=== PATIENT | male | born 1985 | race Two or more races ===

== ENCOUNTER 2020-07-09 20:20 | Emergency (ER) | payer SELFPAY ==
[~2020-07-09] VITALS: Ht 160 cm; Wt 63.6 kg
--- NOTE | 2020-07-09 20:27 | PHYS DOC ---
Past Medical History Past Medical History: No Pertinent History Past Surgical History: Appendectomy Smoking Status: Light Tobacco Smoker Alcohol Use: Rarely Drug Use: None General Adult EDM: Chief Complaint: MULTIPLE COMPLAINTS HPI: HPI: Patient is a 34-year-old male presenting for shortness of breath. Patient is predominantly French-speaking and so, limited history was obtained from myself and otherwise obtained using poultry pinner. Patient reports he recently relocated from [facility] within past week to moved to [facility] for work where he is living with his x2 brothers. Reports 3 days of shortness of breath, subjective fever and chills, nonproductive cough, abdominal discomfort with looser stools than usual. Nothing known makes better or worse. He denies any medical conditions, does not take any medications on a daily basis. No chest pain, hemoptysis, history of cardiac disease nor blood clots, no congenital abnormalities or significant family medical history Review of Systems: Review of Systems: Fourteen body systems of review of systems have been reviewed. See HPI for pertinent positives and negative responses, other meyer all other systems are negative, non-pertinent or non-contributory Heart Score: C/O Chest Pain: No HEART Score for Chest Pain: HEART Score for Chest Pain Response (Comments) Value History Slighlty/Non-Suspicious 0 ECG Normal 0 Age < 45 0 Risk Factors No Risk Factors 0 Troponin < Normal Limit 0 Total 0 Risk Factors: Risk Factors: DM, Current or recent (<one month) smoker, HTN, HLP, family history of CAD, obesity. Risk Scores: Score 0 - 3: 2.5% MACE over next 6 weeks - Discharge Home Score 4 - 6: 20.3% MACE over next 6 weeks - Admit for Clinical Observation Score 7 - 10: 72.7% MACE over next 6 weeks - Early Invasive Strategies Physical Exam: PE: Constitutional: Well developed, well nourished, no acute distress, non-toxic appearance. HENT: Normocephalic, atraumatic, bilateral external ears normal, oropharynx dry, no oral exudates, nose normal. Eyes: PERRLA, EOMI, conjunctiva normal, no discharge. Neck: Normal range of motion, no tenderness, supple, no stridor. Cardiovascular: Heart rate regular, sinus rhythm, no murmurs rubs or gallops Lungs & Thorax: Crackles present bilaterally without respiratory distress, accessory muscle use Abdomen: Bowel sounds normal, soft, no tenderness, no masses, no pulsatile masses. Nonsurgical abdomen, no peritoneal signs Skin: Warm, dry, no erythema, no rash. Back: No tenderness, no CVA tenderness. Extremities: No tenderness, no cyanosis, no clubbing, ROM intact, no edema. Neurologic: Alert and oriented X 3, grossly normal motor & sensory function, no focal deficits noted. Psychologic: Affect normal, judgement normal, mood normal. Current Patient Data: Labs: Laboratory Tests Test 07/09/20 20:55 White Blood Count 6.4 x10^3/uL Red Blood Count 4.62 x10^6/uL Hemoglobin 14.0 g/dL Hematocrit 40.0 % Mean Corpuscular Volume 87 fL Mean Corpuscular Hemoglobin 30 pg Mean Corpuscular Hemoglobin Concent 35 g/dL Red Cell Distribution Width 12.0 % Platelet Count 194 x10^3/uL Neutrophils (%) (Auto) 82 % Lymphocytes (%) (Auto) 11 % Monocytes (%) (Auto) 7 % Eosinophils (%) (Auto) 0 % Basophils (%) (Auto) 0 % Neutrophils # (Auto) 5.2 x10^3/uL Lymphocytes # (Auto) 0.7 x10^3/uL Monocytes # (Auto) 0.4 x10^3/uL Eosinophils # (Auto) 0.0 x10^3/uL Basophils # (Auto) 0.0 x10^3/uL Sodium Level 136 mmol/L Potassium Level 3.5 mmol/L Chloride Level 97 mmol/L Carbon Dioxide Level 25 mmol/L Anion Gap 14 Blood Urea Nitrogen 15 mg/dL Creatinine 1.0 mg/dL Estimated GFR (Cockcroft-Gault) 84.5 BUN/Creatinine Ratio 15 Glucose Level 102 mg/dL Lactic Acid Level 1.0 mmol/L Calcium Level 8.8 mg/dL Total Bilirubin 0.4 mg/dL Aspartate Amino Transf (AST/SGOT) 65 U/L Alanine Aminotransferase (ALT/SGPT) 50 U/L Alkaline Phosphatase 112 U/L Creatine Kinase 726 U/L Troponin I Quantitative < 0.017 ng/mL Total Protein 8.0 g/dL Albumin 3.8 g/dL Albumin/Globulin Ratio 0.9 Influenza Type A Antigen Negative Influenza Type B Antigen Negative Current Medications Medications (Trade) Dose Ordered Sig/Jani Route PRN Reason Start Time Stop Time Status Last Admin Dose Admin Sodium Chloride 1,000 ml @ 1,000 mls/hr Q1H IV 07/09/20 21:00 07/09/20 21:59 DC 07/09/20 21:17 Acetaminophen (Tylenol) 1,000 mg 1X ONCE PO 07/09/20 21:00 07/09/20 21:01 DC 07/09/20 21:16 Sodium Chloride 1,000 ml @ 30 mls/hr 1X ONCE IV 07/09/20 21:00 07/09/20 22:36 DC Doxycycline Hyclate (Vibra-Tab) 100 mg 1X ONCE PO 07/09/20 21:15 07/09/20 21:16 DC 07/09/20 21:17 Vital Signs: Vital Signs Date Time Temp Pulse Resp B/P (MAP) Pulse Ox O2 Delivery O2 Flow Rate FiO2 07/09/20 22:30 100.3 97 24 117/71 (86) 96 Room Air 100.3 07/09/20 20:40 102.6 107 20 122/75 (91) Room Air 95.0 102.6 EKG: EKG: EKG ordered and interpreted by myself 2847 hours as sinus rhythm at 107 bpm, unremarkable intervals, left axis deviation, no acute ischemic findings, no STEMI Radiology/Procedures: Radiology/Procedures: PROCEDURE: PORTABLE CHEST 1V Single view chest dated 07/09/2020. No comparison available. Clinical indication: Shortness breath. FINDINGS: Single upright portable exam performed. Heart and mediastinal contours are stable. There is patchy airspace disease at the peripheral aspect of the mid and lower lung zones bilaterally. No pleural effusion. No pneumothorax. IMPRESSION: Patchy bilateral airspace disease consistent with pneumonia. Covid 19 pneumonitis not excluded. Electronically signed by: Rafa Singleton MD (07/09/2020 8:54 PM) [facility] Course & Med Decision Making: Course & Med Decision Making Febrile and tachycardic patient presenting with history concerning for Covid- like illness in patient with recent moved from [facility] to [place]. Physical exam and ER work-up consistent with pneumonia and nonspecific [id number] symptoms Patient tolerated IV fluid rehydration while in ER, p.o. Tylenol improved patient's fever. Patient symptoms "much improved" and tolerating p.o. intake after ER intervention. P.o. doxycycline chosen for expanded atypical coverage given [place] travel and unknown zoonotic/exotic exposures I discussed need for antibiotic use and need to quarantine until COVID-19 results come back. Patient reports living at home with 6 other family members, he was educated extensively on quarantine measures etc. Strict return precautions were discussed with good understanding by patient, all questions and concerns addressed prior to your departure in improved condition Critical Care Time This patient required critical care. Due to the fact that the patient required a significant amount of one on one physician - patient contact time, ordering and review of studies, arranging urgent treatment with development of a management plan, evaluation of patients response to treatment with frequent reassessments, and discussions with other providers this patient required 32 minutes of critical care time. Critical care time was indicated due to the inherent instability and/or potential for instability in this patient. The critical care time that is allocated to this patient is above and beyond any time spent on any other billable procedures performed on this patient. Zachary Disclaimer: Zachary Disclaimer: This electronic medical record was generated, in whole or in part, using a voice recognition dictation system. Departure Departure Impression: Primary Impression: Bilateral pneumonia Additional Impression: Person under investigation for COVID-19 Disposition: 01 DC HOME SELF CARE/HOMELESS Condition: IMPROVED Patient Instructions: Pneumonia, Adult Scripts Doxycycline Hyclate (DOXYCYCLINE HYCLATE) 100 Mg Tablet 1 TAB PO BID for PNEUMONIA for 7 Days, #13 TAB Prov: JONATAN ABRAHAM DO 07/09/20 JONATAN ABRAHAM DO Jul 09, 2020 20:27
--- NOTE | 2020-07-09 20:45 | EKG ---
[facility] [address] [place] [address] Test Date: 2020-07-09 Test Time: 20:35:51 Pat Name: ROGER MUNOZ Department: Room: Gender: M Tool Keeper: : 1985 Requested By: JONATAN ABRAHAM Order Number: [id number] Reading MD: Measurements Intervals Corinna Rate: 107 P: -6 TX: 148 QRS: -43 QRSD: 92 T: 4 QT: 320 QTc: 432 Interpretive Statements SINUS TACHYCARDIA ABNORMAL LEFT AXIS DEVIATION R-S TRANSITION ZONE IN V LEADS DISPLACED TO THE LEFT LEFT ANTERIOR FASCICULAR BLOCK INCOMPLETE RIGHT BUNDLE BRANCH BLOCK ABNORMAL ECG RI6.02 No previous ECG available for comparison
--- NOTE | 2020-07-09 20:56 | RAD ---
Single view chest dated 07/09/2020. No comparison available. Clinical indication: Shortness breath. FINDINGS: Single upright portable exam performed. Heart and mediastinal contours are stable. There is patchy ai rspace disease at the peripheral aspect of the mid and lower lung zones bilaterally. No pleural effus ion. No pneumothorax. IMPRESSION: Patchy bilateral airspace disease consistent with pneumonia. Covid 19 pneumonitis not excluded. Electronically signed by: Rafa Singleton MD (07/09/2020 8:54 PM) [facility]
[2020-07-09] MEDS ORDERED: IV NORMAL SALINE 1000ML BAG 1,000 ML IV SCH (21:00)
[2020-07-09] MEDS ORDERED: IV NORMAL SALINE 1000ML BAG 1,000 ML IV ONE (21:00)
[2020-07-09] MEDS ORDERED: ACETAMINOPHEN 500 MG TABLET PO ONE (21:00)
[2020-07-09 21:09] LABS: BASO % 0 % (0-3); EOS % 0 % (0-3); LYMPH # 0.7 x10^3/uL (1.0-4.8); LYMPH % 11 % (24-48); MEAN CORPUSCULAR HEMOGLOBIN 30 pg (25-35); MEAN CORPUSCULAR HGB CONC 35 g/dL (31-37); MEAN CORPUSCULAR VOLUME 87 fL (79-100); MONO # 0.4 x10^3/uL (0.0-1.1); MONO % 7 % (0-9); NEUT # 5.2 x10^3/uL (1.8-7.7); NEUT % 82 % (31-73); PLATELET COUNT 194 x10^3/uL (140-400); RED BLOOD COUNT 4.62 x10^6/uL (4.30-5.70); WHITE BLOOD COUNT 6.4 x10^3/uL (4.0-11.0)
[2020-07-09] MEDS ORDERED: DOXYCYCLINE HYCLATE 100 MG TABLET PO ONE (21:15)
[2020-07-09 21:25] LABS: CALCIUM 8.8 mg/dL (8.5-10.1); GFR 84.5; POTASSIUM 3.5 mmol/L (3.5-5.1)
[2020-07-09 21:35] LABS: INFLUENZA A PATIENT NEGATIVE (NEGATIVE); INFLUENZA B PATIENT NEGATIVE (NEGATIVE)
[2020-07-09 21:39] LABS: ALBUMIN 3.8 g/dL (3.4-5.0); ALBUMIN/GLOBULIN RATIO 0.9 (1.0-1.7); TOTAL BILIRUBIN 0.4 mg/dL (0.2-1.0)
[2020-07-09] MEDS ORDERED: DOXY100T PO (22:11)
[2020-07-09 22:30] VITALS: BP 117/71
--- NOTE | 2020-07-12 09:15 | NUR ---
IP: Attempted to contact pt concerning COVID results. No answer, left a voicemail to return the call.
--- NOTE | 2020-07-12 15:50 | NUR ---
IP: Attempted a second time to contact pt concerning COVID results. Left a voicemail to return the call.
== END 2020-07-09 22:33 | disposition home or self-care (01) ==
LOC: ER 20:20
DX: J18.9 Pneumonia, unspecified organism (principal); Z20.822 Contact with and (suspected) exposure to COVID-19; R06.02 Shortness of breath; R50.9 Fever, unspecified; R05 Cough; Z90.89 Acquired absence of other organs; Z87.891 Personal history of nicotine dependence
CPT/HCPCS: 36415; 71045; 80053; 82550; 83605; 84484; 85025; 87804; 93005; 96360; 99285; J7030; U0003